=== PATIENT | male | born 1995 | race Caucasian/White ===

== ENCOUNTER 2018-01-05 11:07 | Emergency (ER) | payer BC ==
[2018-01-05] MEDS ORDERED: RANITIDINE 50 MG/2 ML VIAL IV ONE (11:15)
[2018-01-05] MEDS ORDERED: methylPREDNISolone SOD SUCC 125 MG/2 ML VIAL IVP ONE (11:15)
--- NOTE | 2018-01-05 11:19 | EDPHY ---
H & P Stated Complaint: allergic reaction Time Seen by Provider: 01/05/18 11:12 HPI/ROS: CHIEF COMPLAINT: Possible allergic reaction HISTORY OF PRESENT ILLNESS: 22-year-old male generally healthy, recently diagnosed with epididymitis, started on doxycycline 2 days ago, took a dose this morning, a few minutes later started experiencing diffuse erythema, itching , dyspnea, abdominal cramping, arrives via private vehicle. No vomiting. No chest pain. Use diagnosed with left epididymitis 4 days ago after complaining of nontraumatic left testicular pain for the past 3 weeks. This was based on physical exam findings. PRIMARY CARE PROVIDER: REVIEW OF SYSTEMS: A ten point review of systems was performed and is negative with the exception of the items mentioned in the HPI PAST MEDICAL & SURGICAL HISTORY: recent diagnosis of epididymitis based on clinical examination SOCIAL HISTORY: Nonsmoker. PHYSICAL EXAM (Prior to examination, patient consented to physical exam, hands were washed and my usual and customary physical exam procedures followed) 1) GENERAL: Well-developed, well-nourished, alert and oriented. Appears anxious. Cephalad from the waist diffuse beet red coloration, blanchable. 2) HEAD: Normocephalic, atraumatic 3) HEENT: Pupils equal, round, reactive to light bilaterally. Sclera anicteric. Nasopharynx, oropharynx, clear, no lesions. No tonsillar glossal enlargement 4) NECK: Full range of motion, no meningeal signs. 5) LUNGS: Clear auscultation bilaterally, no wheezes, no rhonchi, no retractions. 6) HEART: Regular rate and rhythm, no murmur, no heave, no gallop. 7) ABDOMEN: No guarding, no rebound, no focal tenderness, negative McBurney's, negative Cox's, negative Rovsing's, negative peritoneal sign, 8) MUSCULOSKELETAL: Moving all extremities, no focal areas of tenderness, no obvious trauma. No peripheral edema or discoloration. 9) BACK: No CVA tenderness, no midline vertebral tenderness, no fluctuance, no step-off, no obvious trauma, no visual or palpable abnormality. 10) SKIN: Beet red coloration cephalad from the waist, itching 11) :. Normal external male genitalia, tender to palpation left posterior testicle. No high-riding testicle. Bilateral cremasteric reflex present and brisk. No urethral discharge. Normal coloration to scrotum. No evidence of Demian's gangrene or cellulitis. DIFFERENTIAL DIAGNOSIS: In no particular include but limited to urticaria, anaphylaxis, epididymitis, testicular torsion, malignancy - Personal History Current Tetanus/Diphtheria Vaccine: Yes Current Tetanus Diphtheria and Acellular Pertussis (TDAP): Yes - Medical/Surgical History Hx Asthma: Yes Hx Chronic Respiratory Disease: No Hx Diabetes: No Hx Cardiac Disease: No Hx Renal Disease: No Hx Cirrhosis: No Hx Alcoholism: No Hx HIV/AIDS: No Hx Splenectomy or Spleen Trauma: No Other PMH: seasonal allergies, asthma - Social History Smoking Status: Former smoker Constitutional: Initial Vital Signs Temperature (C) 36.8 C 01/05/18 11:12 Heart Rate 101 H 01/05/18 11:12 Respiratory Rate 18 01/05/18 11:12 Blood Pressure 155/98 H 01/05/18 11:12 O2 Sat (%) 14 L 01/05/18 11:12 O2 Delivery Mode Room Air Allergies/Adverse Reactions: doxycycline Allergy (Verified 01/05/18 11:12) Home Medications: Medication Instructions Recorded Doxycycline Calcium 01/05/18 EPINEPHrine [Epipen 0.3 MG] 0.3 mg IM ONCE #2 syr 01/05/18 Medical Decision Making - Diagnostics Imaging Results: Imaging Impressions Testicular Ultrasound 01/05/18 11:53 Impression: Normal scrotal ultrasound. Findings discussed with Nick Streeter 01/05/2018 at 13:54. Images reviewed by myself ED Course/Re-evaluation: 11:18 a.m.: Have evaluated the patient and discussed the case with secondary supine position Dr. Jessica Bridges in the ER. I think the patient is currently experiencing signs consistent with acute allergic reaction. He will be given H1 H2 blockers, Solu-Medrol, epinephrine, IV fluids, observed in the ER. No impending airway issues at this time. 11:50 a.m.: Re-evaluation, erythema has resolved, is feeling comfortable. Discussed his testicle pain. He has not had an ultrasound. Will obtain ultrasound of the left testicle. 1:57 pm: Ultrasound interpreted by radiologist is negative. 1:58 p.m.: Re-evaluation. I discussed with the patient his ultrasound results. I do not think that further antibiotics for suspected epididymitis are indicated as there is no radiographic evidence of epididymitis or abnormality.. No mass. No torsion. I did inform him that he needs to avoid doxycycline in the future. Recommend he wears brief style underwear. He continues to appear well from the ER. Recommend that should he develop return of allergic reaction symptoms he needs to return to the ER immediately for re- evaluation. He lives in [place], close to medical facilities. I do not think that further observation from the emergency department is indicated as I believe him to have decision-making capacity. His lungs are clear, has erythema has resolved, his pruritus has resolved. - Data Points Laboratory Results: 01/05/18 12:09 Urine Color PALE YELLOW Urine Appearance CLEAR Urine pH 7.0 (5.0-7.5) Ur Specific [place] 1.005 (1.002-1.030) Urine Protein NEGATIVE (NEGATIVE) Urine Ketones NEGATIVE (NEGATIVE) Urine Blood NEGATIVE (NEGATIVE) Urine Nitrate NEGATIVE (NEGATIVE) Urine Bilirubin NEGATIVE (NEGATIVE) Urine Urobilinogen NEGATIVE EU EU (0.2-1.0) Ur Leukocyte Esterase NEGATIVE (NEGATIVE) Urine RBC 1-3 /hpf /hpf (0-3) Urine WBC 1-3 /hpf /hpf (0-3) Ur Epithelial Cells NONE SEEN /lpf /lpf (NONE-1+) Urine Glucose NEGATIVE (NEGATIVE) Medications Given: Discontinued Medications Diphenhydramine HCl (Benadryl Injection) 50 mg IVP EDNOW ONE Stop: 01/05/18 11:16 Last Admin: 01/05/18 11:20 Dose: 50 mg Epinephrine HCl (Epinephrine) 0.3 mg IM EDNOW ONE Stop: 01/05/18 11:16 Last Admin: 01/05/18 11:20 Dose: 0.3 mg Methylprednisolone Sodium Succinate (Solu-Medrol) 125 mg IVP EDNOW ONE Stop: 01/05/18 11:16 Last Admin: 01/05/18 11:20 Dose: 125 mg Ranitidine HCl (Zantac) 50 mg IV EDNOW ONE Stop: 01/05/18 11:16 Last Admin: 01/05/18 11:19 Dose: 50 mg Departure - Departure Disposition: Home, Routine, Self-Care Clinical Impression: Left testicular pain Allergic reaction Qualifiers: Encounter type: initial encounter Qualified Code(s): T78.40XA - Allergy, unspecified, initial encounter Condition: Good Instructions: Testicle Pain (ED), General Allergic Reaction (ED) Additional Instructions: If you developed allergic reaction symptoms use your EpiPen and call 911. Do not take doxycycline in the future. Referrals: Jayden Powers MD [Medical Doctor] - 2-3 days, call for appt. (Dr. Jayden Powers is a urologist) Prescriptions: EPINEPHrine [Epipen 0.3 MG] 0.3 mg IM ONCE #2 syr
[2018-01-05 13:35] VITALS: BP 136/72
[2018-01-05] MEDS ORDERED: methylPREDNISolone SOD SUCC 125 MG/2 ML VIAL ONE (22:15)
[2018-01-05] MEDS ORDERED: RANITIDINE 50 MG/2 ML VIAL ONE (22:15)
== END 2018-01-05 14:18 | disposition home or self-care (01) ==
DX: N50.812 Left testicular pain (principal); T36.4X5A Adverse effect of tetracyclines, initial encounter; J45.909 Unspecified asthma, uncomplicated; Z87.891 Personal history of nicotine dependence
CPT/HCPCS: 96374; J0171; J1200; J2780; J2930